=== PATIENT | female | born 1990 | race Caucasian/White ===

== ENCOUNTER → 2018-06-10 | Day surgery (SDC) | payer OTHER ==
[~2018-06-10] MED LIST: ACETAMINOPHEN 1000 MG/100 ML 100 ML IV ONE; BUPIVACAINE 0.25%/EPI 30ML SDV INJ ONE; CITALOPRAM HBR20 MG PO; DEXAMETHASONE SOD PHOS INJ 4 MG/ML VIAL ONE; DICYCLOMINE HCL20 MG PO; FENTANYL CITRATE/PF 100MCG/2 ML INJ ONE; GLYCOPYRROLATE INJ 1MG/ 5 ML SYR ONE; HYDROMORPHONE 2MG/ML 2 MG/ML ML ONE; LEVAQUIN500 MG PO; LEVOFLOXACIN 500MG/D5W 100ML 100 ML IV ONE; LIDOCAINE HCL 2% LOCAL INJ 5 ML SDV VIAL INJ ONE; MEPERIDINE HCL INJ 25 MG/ML VIAL ONE; METOCLOPRAMIDE HCL 10 MG/2ML VIAL ONE; MIDAZOLAM HCL 2 MG/2 ML VIAL ONE; NORTRIPTYLINE H25 MG PO; ONDANSETRON HCL INJ 2 MG/ML VIAL ONE; ONDANSETRON2 MG/1 ML PO; PANTOPRAZOLE SO40 MG PO; PHYTONADIONE 5 MG TAB ONE; PROPOFOL IV EMULSION 10 MG/ML 20 ML VIAL ONE; SEVOFLURANE INHAL SOLN 250 ML PEN BTL ONE; TOPIRAMATE100 MG PO; TYLENOL WITH C1 EACH PO; ZOLPIDEM TARTRA10 MG PO
--- OUTSIDE RECORDS SUMMARY | 2018-06-10 08:24 | XMS REPORT ---
Author Author [facility] Address Unknown Phone Unavailable Care Team Providers Care Fur Operator Name Role Phone Manuelito MACHADO Unavailable Unavailable Problems This patient has no known problems. Allergies, Adverse Reactions, Alerts This patient has no known allergies or adverse reactions. Medications This patient has no known medications. Results Test Description Test Time Test Comments Text Results Atomic Results Result Comments CT ABDOMEN/PELVIS W 2018-06-03 19:52:00 [place] [address] Patient Name: CECILIA CANO MR #: [id number] : 1990 Age/Sex: 28/F Req #: [id number] Adm Physician: Ordered by: ALPHONSE ROE RIPENING ROOM ATTENDANT Report #: [id number] Location: ER Room/Bed: Procedure: [id number] CT/CT ABDOMEN/PELVIS W Exam Date: 06/03/18 Exam Time: 1931 REPORT STATUS: Signed EXAM: CT Abdomen and Pelvis WITH contrast IN DICATION: abd pain [id number] COMPARISON: None. TECHNIQUE: Abdomen and pelvis were scanned utilizing a multidetector helical scanner from the lung base to the pubic symphysis after administration of IV contrast. Coronal and sagittal reformations were obtained. Dose modulation, iterative reconstruction, and/or weight based adjustment of the mA/kV was utilized to reduce the radiation dose to as low as reasonably achievable. Routine protocol was performed. Scan was performed when during portal venous phase. IV CONTRAST: 100 mL of Isovue-370 ORAL CONTRAST: None. COMPLICATIONS: None RADIATION DOSE: Total DLP: 450.38 mGy*cm Estimated effective dose: (DLP x 0.015 x size factor) mSv CTDIvol has been reviewed. It is below the limits set by the Radiation Protocol Committee (RPC). FINDINGS: LINES and TUBES: None. LOWER THORAX: Unremarkable HEPATOBILIARY: No focal hepatic lesions. No b iliary ductal dilation. GALLBLADDER: Small gallstones. No wall thickening. SPLEEN: No splenomegaly. PANCREAS: No focal masses or ductal dilatation. ADRENALS: No adrenal nodules KIDNEYS/URETERS: Kidneys enhance symmetrically. No hydronephrosis. No cystic or solid mass lesions. No stones. GI TRACT: No abnormal distention, wall thickening, or evidence of bowel obstruction. Appendix is normal. PELVIC ORGANS/BLADDER: Unremarkable. LYMPH NODES: No lymphadenopathy. VESSELS: Unremarkable. PERITONEUM / RETROPERITONEUM: No free air or fluid. BONES: Bilateral pain fixation of iliac bones, extending to the superior pubic rami. No acute osseous abnormality. Severe degenerative changes of left SI joint. There is also small right fixation of left iliac. Mild compression deformity of L2 vertebral body superior endplate of indeterminate age. SOFT TISSUES: Unremarkable. IMPRESSION: 1. Cholelithiasis witho ut CT evidence of cholecystitis. 2. Mild compression deformity of L2 vertebral body superior endplate of indeterminate age. Signed by: Dr. Chad Madison MD on 06/03/2018 8:07 PM Dictated By: CHAD MADISON MD 06 Transcribed By: TROY on 06/03/182006 COPY TO: ALPHONSE ROE NP
--- NOTE | 2018-06-10 10:55 | Operative Report ---
DATE OF PROCEDURE: June 10, 2018 PREOPERATIVE DIAGNOSIS: Cholelithiasis and cholecystitis. POSTOPERATIVE DIAGNOSIS: Cholelithiasis and cholecystitis. PROCEDURE PERFORMED: Laparoscopic cholecystectomy. ANESTHESIA: General endotracheal. ESTIMATED BLOOD LOSS: Minimal. DRAINS: None. COMPLICATIONS: None. The patient a 28-year-old female admitted through for cholecystectomy. She had been complaining of 2 weeks of abdominal pain associated with nausea. The pain had become constant. She recently had a CT scan done outpatient for the workup of the pain and gallstones were found. No evidence of cholecystitis. Normal ducts. LFTs were normal. INTRAOPERATIVE FINDINGS: Cholelithiasis with subacute type of cholecystitis. No ductal dilatation. There were several large stones. DESCRIPTION OF PROCEDURE: With the patient lying on the operating table in the supine position and after administration of general endotracheal anesthesia, she was prepped and draped for laparoscopic cholecystectomy. The procedure was begun by establishing a pneumoperitoneum in the umbilical site after a stab wound was made. Dilation and the saline drop test was performed. Pneumoperitoneum was insufflated to 15 mm of pressure. Then the 10/11 trocar placed in that location. We finally placed a 10 mm subxiphoid port and 2 lateral working ports, 5 mm each. We then identified the gallbladder and retracted it cephalad using grasping forceps through the two 5-mm trocars and began the dissection part of the stomach sharply, as well as the omentum from the gallbladder after we identified the cystic duct, which was rather small and nondilated, as well as the common bile duct. The cystic artery was also identified. At that point, we transected both structures between titanium clips. We took the gallbladder down from the liver bed using electrocautery dissection. We removed the gallbladder and placed it in an Endobag and removed through the umbilical port. We went ahead and then reinstituted the pneumoperitoneum and examined the operative field. There was no bile leak. No bleeding. No apparent bowel injury. We removed the trocars and released the pneumoperitoneum. Closed the wounds using 0 Vicryl for the umbilical site, 3-0 Vicryl for the subcutaneous tissue in that location, as well as the subxiphoid ports. The skin of all the ports was closed using koffi, and 0.25% Marcaine with epinephrine was given as a block at the end of the case. The patient tolerated the procedure well. Taken to the recovery room in stable condition. Job#: [id number]
[2018-06-10 11:50] VITALS: BP 105/60
== END | disposition home or self-care (01) ==
LOC: OR 08:23
PROVIDERS: ATTEND Surgery
DX: K80.10 Calculus of gallbladder with chronic cholecystitis without obstruction (principal); K21.9 Gastro-esophageal reflux disease without esophagitis; Z68.32 Body mass index [BMI] 32.0-32.9, adult; Z96.649 Presence of unspecified artificial hip joint; Z87.891 Personal history of nicotine dependence
CPT/HCPCS: 47562; 81025; 88304; C1766; J0131; J1100; J1170; J1956; J2001; J2175; J2250; J2405; J2704; J2765; J3490

== ENCOUNTER → 2020-02-01 | Outpatient (CLI) | payer OTHER ==
[~2020-02-01] MED LIST changes: -ACETAMINOPHEN 1000 MG/100 ML 100 ML IV ONE; -BUPIVACAINE 0.25%/EPI 30ML SDV INJ ONE; -DEXAMETHASONE SOD PHOS INJ 4 MG/ML VIAL ONE; -FENTANYL CITRATE/PF 100MCG/2 ML INJ ONE; -GLYCOPYRROLATE INJ 1MG/ 5 ML SYR ONE; -HYDROMORPHONE 2MG/ML 2 MG/ML ML ONE; -LEVOFLOXACIN 500MG/D5W 100ML 100 ML IV ONE; -LIDOCAINE HCL 2% LOCAL INJ 5 ML SDV VIAL INJ ONE; -MEPERIDINE HCL INJ 25 MG/ML VIAL ONE; -METOCLOPRAMIDE HCL 10 MG/2ML VIAL ONE; -MIDAZOLAM HCL 2 MG/2 ML VIAL ONE; -ONDANSETRON HCL INJ 2 MG/ML VIAL ONE; -PHYTONADIONE 5 MG TAB ONE; -PROPOFOL IV EMULSION 10 MG/ML 20 ML VIAL ONE; -SEVOFLURANE INHAL SOLN 250 ML PEN BTL ONE
--- NOTE | 2020-02-01 16:46 | Diagnostic Imaging Report ---
TECHNIQUE: Magnetic resonance imaging of the LEFT KNEE was performed WITHOUT injected contrast. HISTORY: Internal derangement of left knee COMPARISON: None available. FINDINGS: LIGAMENTS AND TENDONS: ACL: Intact PCL: Intact Collateral ligaments: Intact Iliotibial band: Unremarkable Popliteal tendon: Intact Extensor mechanism: Intact JOINT: Menisci: Medial: Intact Lateral: Intact Articular Cartilage: Medial Compartment: No focal defect. Lateral Compartment: No focal defect. Patellofemoral Compartment: Mild cartilage thinning along the median patellar ridge and lateral trochlear groove. No full-thickness defects. Joint Fluid: The amount of fluid within the joint is within physiologic limits. Tiny Alexandre's cyst. Mild edema along the superior lateral aspect of Hoffa's fat pad near the patellofemoral joint compartment. Trochlear depth and symmetry are within normal limits. Borderline increased TT-TG distance measuring up to 16 mm. BONE: No focal or infiltrative bone marrow replacing abnormality. No acute fracture. SOFT TISSUES: Otherwise, unremarkable. IMPRESSION: 1. No acute ligament, tendon, or meniscus injury. 2. Mild edema at the superolateral aspect of Hoffa's fat pad with mild cartilage thinning along the patella/lateral trochlear groove. Associated borderline increased TT-TG distance. Findings can be seen with patellar maltracking or patellar tendon-lateral femoral condyle fraction syndrome. Signed by: Dr. Kishor Sahni M.D. on 02/01/2020 4:43 PM
== END ==
LOC: MRI 14:28
PROVIDERS: ATTEND Specialist
DX: M23.92 Unspecified internal derangement of left knee (principal)
CPT/HCPCS: 81025